=== PATIENT | male | born 1960 | race Caucasian/White ===

== ENCOUNTER 2021-08-21 06:07 | Day surgery (SDC) | payer OTHER ==
[~2021-08-21] VITALS: Ht 175.3 cm; Wt 79.0 kg
[~2021-08-21 06:07] MED LIST: Acetaminophen325 M1 PO; Aspir 8181 MG PO; B-12 COMPL1000 MCG/2 PO; METO25ER PO; TOPROL XL25 MG PO; XARELTO20 MG PO; ZINC220 PO
--- NOTE | 2021-08-21 08:58 | NUR ---
3cc REMOVED FROM TR BAND. TISSUE AROUND BAND SOFT AND NONTENDER. NO BLEEDING NOTED.
--- NOTE | 2021-08-21 09:14 | NUR ---
TR BAND FULLY DEFLATED. NO BLEEDING NOTED. TISSUE AROUND BAND SOFT AND NON-TENDER. PT AMBULATED TO RESTROOM.
--- NOTE | 2021-08-21 10:19 | NUR ---
PT GIVEN DC INSTRUCTIONS AND VERBALIZED UNDERSTANDING. IV OUT W/ CATH INTACT. TR BAND REMOVED. CLOT DOT APPLIED W/ ARM BOARD AND SLING. PT TAKEN TO PARKING LOT VIA WC. SO TO DRIVE THE PATIENT HOME.
== END 2021-08-21 10:00 | disposition home or self-care (01) ==
LOC: MHTC 06:07
DX: I25.10 Atherosclerotic heart disease of native coronary artery without angina pectoris (principal); I48.0 Paroxysmal atrial fibrillation; E78.5 Hyperlipidemia, unspecified; Z87.891 Personal history of nicotine dependence
CPT/HCPCS: 76937; 93454; 99152; 99153; C1769; C1887; C1894; J1644; J2250; J3010; J7030; Q9967

== ENCOUNTER 2022-01-29 09:15 | Day surgery (SDC) | payer OTHER ==
[~2022-01-29] VITALS: Ht 175.3 cm; Wt 76.8 kg
--- NOTE | 2022-01-29 10:52 | NUR ---
Ambulatory in Day Surgery. Patient confirms NPO status and agrees with scheduled surgery. Patient reports completing Chlorhexadine shower X2 prior to admission to hospital. Lungs clear T/O to Auscultation. Pre-Op teaching done. Pt verbalizes understanding. Patient States Post-Procedure ride home has been arranged.
[2022-01-29] MEDS ORDERED: Amiodarone HCl200 MG PO (10:57)
[2022-01-29] MEDS ORDERED: ATOR20 (10:59)
--- NOTE | 2022-01-29 11:28 | NUR ---
01/29/22 1128 [address] Pretty NO ABX PER
--- NOTE | 2022-01-29 13:09 | NUR ---
RECIEVED PATIENT AND REPORT VSS STATES PAIN A 3-4 AND TOLERABLE ASKING FOR COFFEE. SURGERY SITES TIMES 3 INTACT WITH SKIN GLUE.
--- NOTE | 2022-01-29 13:53 | NUR ---
Discharge instructions reviewed with patient AND . . Patient verbalizes understanding. Copy given to patient to take home. ASSISTING PATIENT TO DRESS. Discharged via wheelchair to private car for ride home.
== END 2022-01-29 22:53 | disposition home or self-care (01) ==
LOC: ORSCMMR 09:15 → ORD 10:30 → ORSCMMR 22:53
PROVIDERS: Surgery
PROC: 8E0W4CZ Robotic Assisted Procedure of Trunk Region, Percutaneous Endoscopic Approach (ICD-10-PCS; principal; 2022-01-29 10:30)
PROC: 0YU54JZ Supplement Right Inguinal Region with Synthetic Substitute, Percutaneous Endoscopic Approach (ICD-10-PCS; principal; 2022-01-29 10:30)
DX: K40.90 Unilateral inguinal hernia, without obstruction or gangrene, not specified as recurrent (principal); R73.03 Prediabetes; I48.91 Unspecified atrial fibrillation; Z79.01 Long term (current) use of anticoagulants; Z79.899 Other long term (current) drug therapy; Z87.891 Personal history of nicotine dependence
CPT/HCPCS: 49650; S2900; 82947; A9270; C1781; J1100; J1885; J2250; J2405; J2704; J2795; J3010; J7120

== ENCOUNTER 2023-01-31 11:31 | Emergency (ER) | payer OTHER ==
[~2023-01-31] VITALS: Ht 175.3 cm; Wt 74.4 kg
[~2023-01-31 11:31] MED LIST changes: +ATOR20; +Amiodarone HCl200 MG PO
[2023-01-31 12:00] LABS: BASOPHILS ABSOLUTE AUTO 0.05 K/mm3 (0.00-0.23); BASOPHILS PERCENT AUTO 0 % (0-2); EOSINOPHILS ABSOLUTE AUTO 0.06 K/mm3 (0.00-0.68); EOSINOPHILS PERCENT AUTO 1 % (0-6); Hematocrit 40.6 % (37.0-53.0); Hemoglobin 14.1 g/dL (13.5-17.5); IMMATURE GRAN ABSOLUTE AUTO 0.06 K/mm3 (0.00-0.10); IMMATURE GRAN PERCENT AUTO 1 % (0-1); LYMPHOCYTES ABSOLUTE AUTO 1.56 K/mm3 (0.84-5.20); LYMPHOCYTES PERCENT AUTO 12 % (21-46); MONOCYTES ABSOLUTE AUTO 0.61 K/mm3 (0.16-1.47); MONOCYTES PERCENT AUTO 5 % (4-13); Mean Corpuscular HGB 30.8 pg (26.0-34.0); Mean Corpuscular HGB Conc 34.7 g/dL (31.5-36.5); Mean Corpuscular Volume 89 fL (80-100); Mean Platelet Volume 9.5 fL (9.1-12.4); NEUTROPHILS ABSOLUTE AUTO 10.83 K/mm3 (1.96-9.15); NEUTROPHILS PERCENT AUTO 82 % (41-73); Platelet Count 214 K/mm3 (150-400); RDW Coefficient Variation 11.8 % (11.7-14.2); RDW Standard Deviation 37.9 fL (35.1-46.3); Red Blood Cell Count 4.58 M/mm3 (4.30-5.90); White Blood Cell Count 13.17 K/mm3 (4.00-11.30)
[2023-01-31 12:18] LABS: Albumin, Blood 3.9 g/dL (3.4-5.0); Albumin/Globulin Ratio 1.2 (0.8-1.8); Bilirubin, Total 0.7 mg/dL (0.1-1.0); Bun/Creatinine Ratio 26.8 (12.0-20.0); Creatinine, Blood 0.78 mg/dL (0.60-1.20); Globulin, Blood 3.2 g/dL (2.2-4.0); Potassium, Blood 4.2 mmol/L (3.5-5.5); Total Protein, Blood 7.1 g/dL (6.4-8.2)
[2023-01-31 12:23] LABS: Source, Urine Clean Catch
[2023-01-31] MEDS ORDERED: ASPI81CH PO (12:41)
[2023-01-31] MEDS ORDERED: Vitamin D1000 UNI1 PO (12:42)
[2023-01-31] MEDS ORDERED: VITAMIN B-12500 MCG SL (12:42)
[2023-01-31 12:45] LABS: Appearance, Urine Clear (Clear); Bilirubin, Urine Neg (Neg); Blood, Urine 3+ (Neg); Color, Urine Yellow (P-Yellow); Glucose Qualitative, Urine Neg (Neg); Ketones, Urine Neg (Neg); Leukocyte Esterase, Urine Neg (Neg); Nitrite, Urine Neg (Neg); Protein, Urine 1+ (Neg); Specific Gravity, Urine 1.015 (1.003-1.022); Urobilinogen, Urine NORM (Normal)
[2023-01-31 13:20] LABS: Bacteria Few /hpf; Squamous Epithelial Cells Few /hpf (Few)
[2023-01-31 14:15] VITALS: BP 133/60
[2023-01-31] MEDS ORDERED: Flomax0.4 MG PO (15:17)
[2023-01-31] MEDS ORDERED: HYDR1TAB94 PO (15:17)
== END 2023-01-31 16:16 | disposition home or self-care (01) ==
LOC: ER 11:31
PROVIDERS: Emergency Medicine
DX: N13.2 Hydronephrosis with renal and ureteral calculous obstruction (principal); Z79.899 Other long term (current) drug therapy; E78.00 Pure hypercholesterolemia, unspecified; M19.90 Unspecified osteoarthritis, unspecified site; Z87.891 Personal history of nicotine dependence
CPT/HCPCS: 74177; 80053; 81001; 85025; 96374; 96375; 99284-25; A9270; J1170; J1885; J2405; Q9967